=== PATIENT | female | born 1975 | race Caucasian/White ===

== ENCOUNTER 2018-08-19 15:16 | Outpatient (REF) | payer BC, SELFPAY ==
[2018-08-21 15:26] LABS: Chlamydia Result Negative; GC Result Negative; Specimen Description CERVIX
== END 2018-08-19 15:36 ==
LOC: NCHCN 15:16
PROVIDERS: PCP Nurse Practitioner Family; Visit Provider Family Medicine
DX: Z11.3 Encounter for screening for infections with a predominantly sexual mode of transmission (principal)
CPT/HCPCS: 87491; 87591

== ENCOUNTER 2020-04-30 04:39 | Outpatient (CLI) | payer BC, SELFPAY ==
--- NOTE | 2020-04-30 | DI.US_ITS ---
EXAM: US BREAST LT LIMITED CLINICAL HISTORY: LT BREAST CYST,N60.2 TECHNIQUE: Ultrasound right breast performed using standard protocol. COMPARISON: MG Screening Bilat Mammo from 04/10/2016 US RIGHT BREAST ULTRASOUND from 04/19/2016 MG R. Spot - Same Day from 04/19/2016 US LEFT BREAST ULTRASOUND from 04/19/2016 FINDINGS: Patient notes palpable abnormalities in the upper outer quadrant of the left breast. There is a 2.5 centimeter simple cyst in the 12 o'clock position 1 cm from the nipple. There is a 1.1 centimeter si mple cyst in the 2 o'clock position, 4 centimeters from the nipple. There is a 1.6 centimeter cyst i n the 2 o'clock position, 5 centimeters from nipple. No solid masses or ductal dilatation is seen. No skin thickening is identified. IMPRESSION: Palpable abnormalities correspond to simple cysts. No sonographically suspicious finding. BI-RADS Category 2 - Benign Findings DATA REPOSITORY:
== END 2020-04-30 04:59 ==
PROVIDERS: PCP Nurse Practitioner Family; Visit Provider Nurse Practitioner Family
DX: N60.02 Solitary cyst of left breast (principal)
CPT/HCPCS: 76642